=== PATIENT | male | born 1960 | race Caucasian/White ===

== ENCOUNTER 2017-09-21 08:50 | Emergency (ER) | payer OTHER ==
[~2017-09-21] VITALS: Ht 172.7 cm; Wt 68.0 kg
[2017-09-21] MEDS ORDERED: PERCOCET PO (08:58)
[2017-09-21] MEDS ORDERED: OXYCONTIN20 M1 PO (08:58)
[2017-09-21] MEDS ORDERED: VALIUM5 MG PO (08:58)
[2017-09-21] MEDS ORDERED: ZOFRAN4 MG PO (11:14)
[2017-09-21] MEDS ORDERED: MEDROL DOSPAK21 TA1 PO (11:14)
[2017-09-21] MEDS ORDERED: NORFLEX100 MG PO (11:14)
[2017-09-21 11:24] VITALS: BP 110/70
== END 2017-09-21 11:27 | disposition home or self-care (01) ==
LOC: M.ERS 08:50
DX: M54.2 Cervicalgia (principal); F17.210 Nicotine dependence, cigarettes, uncomplicated; Z88.5 Allergy status to narcotic agent

== ENCOUNTER 2017-09-23 01:11 | Emergency (ER) | payer OTHER ==
[~2017-09-23] VITALS: Ht 172.7 cm; Wt 72.6 kg
[~2017-09-23 01:11] MED LIST: MEDROL DOSPAK21 TA1 PO; NORFLEX100 MG PO; OXYCONTIN20 M1 PO; PERCOCET PO; VALIUM5 MG PO; ZOFRAN4 MG PO
[2017-09-23 01:43] LABS: ABSOLUTE BASOPHILS 0.1 thou/uL (0.0-0.2); ABSOLUTE EOSINOPHILS 0.1 thou/uL (0.0-0.7); ABSOLUTE LYMPHOCYTES 2.9 thou/uL (0.8-5.3); ABSOLUTE MONOCYTES 1.9 thou/uL (0.0-1.2); ABSOLUTE NEUTROPHILS 13.6 thou/uL (1.6-8.1); BASOPHILS 0.7 %; EOSINOPHILS 0.7 %; HEMATOCRIT 40.6 % (42.0-52.0); LYMPHOCYTES 15.5 %; MCH 30.9 pg (26.0-34.0); MCHC 34.6 g/dL (28.0-37.0); MCV 89.3 fL (80.0-100.0); MONOCYTES 10.3 %; MPV 8.2 fl. (7.2-11.1); NUCLEATED RBCS 0 /100WBC; PLATELET COUNT* 220 thou/uL (150-400); POLYS 72.8 %; RBC 4.54 mil/uL (4.50-6.00); RDW-CV 12.9 % (10.5-14.5); WBC 18.6 thou/uL (4.0-11.0)
[2017-09-23 01:51] LABS: CALCIUM 8.6 mg/dL (8.5-10.1); CREATININE 0.9 mg/dL (0.6-1.3); POTASSIUM 3.8 mmol/L (3.5-5.1)
[2017-09-23 01:56] LABS: ALBUMIN 3.3 g/dL (3.4-5.0); TOTAL BILIRUBIN 0.5 mg/dL (<0.1-1.0); TOTAL PROTEIN 7.3 g/dL (6.4-8.2)
[2017-09-23 02:03] LABS: INFLUENZA A ANTIGEN None Detected (None Detect); INFLUENZA B ANTIGEN None Detected (None Detect)
[2017-09-23] MEDS ORDERED: AUGMENTIN 875-1 EACH PO (02:11)
[2017-09-23 02:40] VITALS: BP 134/74
== END 2017-09-23 03:12 | disposition home or self-care (01) ==
LOC: M.ERS 01:11
PROVIDERS: Family Medicine
DX: B34.9 Viral infection, unspecified (principal); F17.210 Nicotine dependence, cigarettes, uncomplicated; Z88.5 Allergy status to narcotic agent